=== PATIENT | male | born 1960 | race African-American/Black ===

== ENCOUNTER 2021-10-08 13:15 | Inpatient (IN) | payer MEDICAID ==
[~2021-10-08] VITALS: Ht 172.7 cm; Wt 90.7 kg
--- NOTE | 2021-10-08 13:45 | NUR ---
Patient accompanied by caregiver, complaints of right lower ext pain 6/10, headache started today. Denies nausea/vomiting. History of stroke 2 years ago. Vitals stable.
--- NOTE | 2021-10-08 13:55 | NUR ---
MD at bedside, medical screening in process.
[2021-10-08] MEDS ORDERED: TRAZ150T75 PO (14:03)
[2021-10-08] MEDS ORDERED: [UNRECOGNIZED DRUG - CODE] PO (14:03)
[2021-10-08] MEDS ORDERED: METF-440 PO (14:03)
[2021-10-08] MEDS ORDERED: EZET10TA15 PO (14:03)
[2021-10-08] MEDS ORDERED: ESCI-9 PO (14:03)
[2021-10-08] MEDS ORDERED: CHOL10005 PO (14:03)
[2021-10-08] MEDS ORDERED: TAMS-3 PO (14:03)
[2021-10-08] MEDS ORDERED: ESCI5TAB PO (14:03)
[2021-10-08] MEDS ORDERED: BICT1TAB PO (14:03)
[2021-10-08] MEDS ORDERED: ATOR80TA PO (14:03)
[2021-10-08] MEDS ORDERED: LISI10TA29 PO (14:03)
[2021-10-08 14:18] LABS: HEMATOCRIT 37.1 % (36.7-47.1); MEAN CORPUSCULAR HEMOGLOBIN 32.5 uug (23.8-33.4); MEAN CORPUSCULAR VOLUME 94.8 fL (73.0-96.2); PLATELET COUNT (AUTO) 270 K/uL (152-348)
[2021-10-08 14:24] LABS: CARBON DIOXIDE 27 mmol/L (21-32); CHLORIDE 104 mmol/L (98-107); CREATININE 1.4 mg/dL (0.6-1.3); GLUCOSE 104 mg/dL (74-106); POTASSIUM 4.1 mmol/L (3.5-5.1); UREA NITROGEN, BLOOD 15 mg/dL (7-18)
[2021-10-08 14:33] LABS: ALANINE AMINOTRANSFERASE 57 U/L (16-63); ALKALINE PHOSPHATASE 106 U/L (50-136); ASPARTATE AMINOTRANSFERASE 19 U/L (15-37); BILIRUBIN,DIRECT 0.1 mg/dL (0.0-0.2); BILIRUBIN,TOTAL 0.5 mg/dL (0.2-1.0)
--- NOTE | 2021-10-08 17:22 | NUR ---
Called [facility], patient will be in Room 319 Telemetry.
[2021-10-08] MEDS ORDERED: INSULIN REGULAR, HUMAN 300 UNIT/3 ML VIAL SQ PRN (17:30)
[2021-10-08] MEDS ORDERED: DEXTROSE 50% 50 ML DISP.SYRIN IV PRN (17:30)
[2021-10-08] MEDS ORDERED: ACETAMINOPHEN 325 MG TABLET PO PRN (17:30)
[2021-10-08] MEDS ORDERED: ONDANSETRON 4 MG/2 ML VIAL IV PRN (17:30)
--- NOTE | 2021-10-08 17:56 | NUR ---
Spoke with doc to give a report said "I will call you back".
[2021-10-08 20:00] VITALS: BP 135/80
--- NOTE | 2021-10-08 20:05 | NUR ---
REPORT GIVEN TO LIYAH YEE
--- NOTE | 2021-10-08 20:25 | NUR ---
TRANSFERRED PATIENT TO ROOM 319 TOGETHER WILL ALL BELONGINGS. LIYAH YEE IS AWARE OF PATIENT'S ARRIVAL
[2021-10-08] MEDS ORDERED: Medication Not On Formulary EA (Atorvastatin Calcium (Lipitor) 80 MG) PO SCH (21:00)
[2021-10-08] MEDS ORDERED: IV 1/2NS 1000 ML 1,000 ML IV ONE (21:00)
--- NOTE | 2021-10-08 21:00 | NUR ---
RECEIVED PATIENT VIA GURNEY FROM ER. PATIENT IS A/O X3. ABLE TO GIVE SOME HISTORY, BUT FORGETFUL AT TIMES. SPEECH IS CLEAR, BUT ALSO DELAYED AT TIMES. ABLE TO VERBALIZE NEEDS AND CONCERNS. A/O X3. DENIES ANY PAIN OR DISCOMFORT AT THIS TIME. PATIENT HAD A STROKE BEFORE AND HAS RIGHT SIDED WEAKNESS NOTED. BEDSIDE SWALLOW EVAL DONE AND PATIENT ABLE TO SWALLOW WATER WITHOUT ANY PROBLEM. VS WNL. H/L INTACT AND PATENT. PLACED ON TELE ORDERED SR. BED ALARM ON FOR SAFETY. CALL LIGHT IN REACH. ALL NEEDS ATTENDED. WILL CONTINUE TO MONITOR AND ASSESS.
[2021-10-08] MEDS: TAMSULOSIN HCL 0.4 MG CAP.SR.24H PO SCH (22:01)
[2021-10-08] MEDS: BLOOD SUGAR DIAGNOSTIC 1 EACH STRIP VI SCH (22:02)
[2021-10-08] MEDS: ATORVASTATIN 40 MG TABLET PO SCH (22:02)
[2021-10-09] VITALS: BP 102/66
[2021-10-09 04:34] VITALS: BP 112/71
--- NOTE | 2021-10-09 05:48 | NUR ---
PATIENT ASLEEP IN BED. SLEPT WELL. VSS. ON TELE SR. WILL CONTINUE TO MONITOR AND ASSESS.
[2021-10-09 07:04] LABS: HEMATOCRIT 36.2 % (36.7-47.1); MEAN CORPUSCULAR HEMOGLOBIN 32.8 uug (23.8-33.4); MEAN CORPUSCULAR VOLUME 95.1 fL (73.0-96.2); PLATELET COUNT (AUTO) 212 K/uL (152-348)
[2021-10-09] MEDS: BLOOD SUGAR DIAGNOSTIC 1 EACH STRIP VI SCH ×4 (07:04→20:38)
[2021-10-09 07:44] LABS: BILIRUBIN,TOTAL 0.7 mg/dL (0.2-1.0); CREATININE 1.3 mg/dL (0.6-1.3); PHOSPHOROUS 4.1 mg/dL (2.5-4.9); POTASSIUM 3.6 mmol/L (3.5-5.1); TOTAL PROTEIN, SERUM 7.5 g/dL (6.4-8.2)
[2021-10-09 07:46] LABS: THYROID STIMULATING HORMONE 0.853 mIU/mL (0.358-3.740)
[2021-10-09] MEDS ORDERED: METFORMIN HCL 500 MG TABLET PO SCH ×2 (09:00)
[2021-10-09] MEDS ORDERED: Medication Not On Formulary EA (Cholecalciferol (Vitamin D3) (Vitamin D3) 1 CAP) PO SCH (09:00)
[2021-10-09] MEDS ORDERED: BICTEGRAVIR PO SCH (09:00)
[2021-10-09] MEDS ORDERED: TENOFOVIR ALAFENAMIDE PO SCH (09:00)
[2021-10-09] MEDS ORDERED: ESCITALOPRAM OXALATE 2.5 MG PO SCH (09:00)
[2021-10-09] MEDS ORDERED: LISINOPRIL 10 MG TABLET PO SCH (09:00)
[2021-10-09] MEDS ORDERED: [UNRECOGNIZED DRUG - OTHER] PO SCH (09:00)
[2021-10-09] MEDS ORDERED: EMTRICITABINE PO SCH (09:00)
[2021-10-09] MEDS ORDERED: ESCITALOPRAM OXALATE 10 MG TABLET PO SCH (09:00)
[2021-10-09] MEDS: ASPIRIN EC 81 MG TABLET.DR PO SCH (09:54)
[2021-10-09] MEDS: CHOLECALCIFEROL 1,000 UNIT TABLET PO SCH (09:54)
[2021-10-09] MEDS: HEPARIN SODIUM,PORCINE 5,000 UNITS/ML VIAL SQ SCH ×2 (09:54→17:08)
[2021-10-09] MEDS: EZETIMIBE 10 MG TABLET PO SCH (09:55)
[2021-10-09 12:12] VITALS: BP 124/73
[2021-10-09] MEDS ORDERED: METF-494 PO (12:19)
--- NOTE | 2021-10-09 12:21 | NUR ---
pt is a/o x 3-4. Pt is able to ambulate to restroom with standby assist. Speech is clear and pt is able to communicate needs. [facility] nurse visitation today. Home medications cleared up with [facility] nurse and reported to pharmacy. Will continue to monitor pt.
[2021-10-09] MEDS: ESCITALOPRAM OXALATE 10 MG TABLET PO SCH (14:01)
[2021-10-09] MEDS: CLOPIDOGREL 75 MG TABLET PO SCH (15:27)
[2021-10-09 16:02] VITALS: BP 116/65
[2021-10-09] MEDS ORDERED: IV NORMAL SALINE 250 ML IV ONE (16:44)
[2021-10-09] MEDS ORDERED: IOHEXOL 350 100 ML INFUS..BTL ONE (16:44)
[2021-10-09] MEDS ORDERED: SWABABLE VALVE TRANSFER SET EA MC ONE (16:44)
--- NOTE | 2021-10-09 16:44 | NUR ---
CTA of carotids and brain ordered per neuro and primary due to concern of delayed/slurred speech. It was reported that speech is chronic due to history of CVA but caregiver reported that it is new onset. Metformin to be held [address] with contrast. Consent signed by pt.
[2021-10-09] MEDS ORDERED: METFORMIN XR 500 MG TAB.SR.24H PO SCH (17:00)
--- NOTE | 2021-10-09 17:26 | NUR ---
PT STARTED BURPING UNCONTROLLABLY CAN'T HOLD STILL,BROUGHT PT BACK TO HIS ROOM AND INFORMED HIS NURSE. SHE WILL CALL BACK WHEN HE CAN HOLS STILL.
--- NOTE | 2021-10-09 17:30 | NUR ---
pt was given metformin dose prior to CT due to needing to hold for two days post CT. Pt was unable to lay still during procedure due to constant gas build up and need of burping. Will attempt after pt has subsided symptoms.
--- NOTE | 2021-10-09 18:18 | NUR ---
pt is calm at this time, advised not to eat full meal to avoid nausea during dye injection. Pt feels he can lay straight. Pending imaging at this time.
--- NOTE | 2021-10-09 18:40 | NUR ---
Pt has gone for CT and returned. Imaging process was successful. Results should be in within the hour per tech report. Will endorse to yarn cleaner to follow up with results and notify MD of findings.
--- NOTE | 2021-10-09 19:20 | NUR ---
RECEIVED REPORT FROM OUTSIDE RADIOLOGIST IN REGARDS TO PATIENTS CTA RESULTS. WILL NOTIFY
--- NOTE | 2021-10-09 19:30 | NUR ---
CALLED OUT TO DR. GAUTHIER FOR CTA RESULTS. NO NEW ORDERS AT THIS TIME. ALL NEEDS ATTENDED. WILL CONTINUE TO MONITOR AND ASSESS.
--- NOTE | 2021-10-09 20:00 | NUR ---
PATIENT AWAKE IN BED. A/O X3-4. DENIES ANY PAIN OR DISCOMFORT. NO RESP. DISTRESS NOTED. VS WNL. ON TELE SR. H/L INTACT AND PATENT, NOTED TO RIGHT WRIST #20 GAUGE. CALL LIGHT IN REACH. ALL NEEDS ATTENDED. WILL CONTINUE TO MONITOR AND ASSESS.
[2021-10-09 20:03] VITALS: BP 108/65
[2021-10-09] MEDS: TAMSULOSIN HCL 0.4 MG CAP.SR.24H PO SCH (20:29)
[2021-10-09] MEDS: ATORVASTATIN 40 MG TABLET PO SCH (20:30)
[2021-10-10 00:12] VITALS: BP 101/56
[2021-10-10 04:20] VITALS: BP 104/62
[2021-10-10] MEDS: BLOOD SUGAR DIAGNOSTIC 1 EACH STRIP VI SCH ×4 (06:26→20:21)
--- NOTE | 2021-10-10 07:16 | NUR ---
PATIENT AWAKE IN BED. SLEPT WELL THROUGHOUT THE NIGHT. ON TELE SR. VS WNL. DENIES ANY PAIN OR DISCOMFORT. ALL NEEDS ATTENDED. WILL CONTINUE TO MONITOR AND ASSESS.
[2021-10-10] MEDS: CLOPIDOGREL 75 MG TABLET PO SCH (08:14)
[2021-10-10] MEDS: ASPIRIN EC 81 MG TABLET.DR PO SCH (08:14)
[2021-10-10] MEDS: ESCITALOPRAM OXALATE 10 MG TABLET PO SCH (08:15)
[2021-10-10] MEDS: CHOLECALCIFEROL 1,000 UNIT TABLET PO SCH (08:15)
[2021-10-10] MEDS: EZETIMIBE 10 MG TABLET PO SCH (08:15)
[2021-10-10] MEDS: HEPARIN SODIUM,PORCINE 5,000 UNITS/ML VIAL SQ SCH ×2 (08:22→16:40)
[2021-10-10 08:54] VITALS: BP 106/72
--- NOTE | 2021-10-10 11:15 | NUR ---
Pt is alert oriented x 3-4 with slight delay in words. Speech is clear, no complaint of headache, nausea or indigestion. Pt does not have altered mental status. Comfort measures provided, call light within reach, will continue to monitor.
[2021-10-10 11:48] VITALS: BP 98/61
[2021-10-10 15:43] VITALS: BP 114/74
--- NOTE | 2021-10-10 19:12 | NUR ---
Received patient in bed AALOx 4.Denies pain at this time. On RA.No resp. distress noted.NSR on Tele .Iv patent and intact on right wrist. notified of MRA stat will not be done today.Will rescheduled tomorrow.Charge nurse /Anne made aware .Will continue to monitor. Call light with in reach.
[2021-10-10 20:10] VITALS: BP 107/64
[2021-10-10] MEDS: TAMSULOSIN HCL 0.4 MG CAP.SR.24H PO SCH (20:20)
[2021-10-10] MEDS: ATORVASTATIN 40 MG TABLET PO SCH (20:20)
[2021-10-11 04:32] VITALS: BP 121/72
--- NOTE | 2021-10-11 06:41 | NUR ---
Patient verbally responsive. Slept well. No acute distress noted.NSR on tele.MRA consent sign .all needs anticipated and met accordingly. VSS.Will endorse to oncoming shift.
[2021-10-11] MEDS: BLOOD SUGAR DIAGNOSTIC 1 EACH STRIP VI SCH ×4 (06:45→20:26)
[2021-10-11] MEDS: EZETIMIBE 10 MG TABLET PO SCH (08:29)
[2021-10-11] MEDS: CLOPIDOGREL 75 MG TABLET PO SCH (08:30)
[2021-10-11] MEDS: ASPIRIN EC 81 MG TABLET.DR PO SCH (08:30)
[2021-10-11] MEDS: ESCITALOPRAM OXALATE 10 MG TABLET PO SCH (08:30)
[2021-10-11] MEDS: CHOLECALCIFEROL 1,000 UNIT TABLET PO SCH (08:30)
[2021-10-11] MEDS: HEPARIN SODIUM,PORCINE 5,000 UNITS/ML VIAL SQ SCH ×2 (08:31→17:30)
--- NOTE | 2021-10-11 10:34 | NUR ---
Pt is going for MRI of head and neck. Transportation steel pickler now via [facility] to [facility]. Consent and forms signed and provided to transport team.
[2021-10-11] MEDS ORDERED: GADOTERATE MEGLUMINE 10 MMOL/20 ML VIAL IV ONE (12:43)
--- NOTE | 2021-10-11 13:00 | NUR ---
Pt has returned from [place] ([facility]). Vitals: 122/90 HR 74, 98% SpO2. No adverse events during time away reported. No complaints of dizziness or pain. Will continue to monitor.
[2021-10-11] MEDS ORDERED: METFORMIN XR 500 MG TAB.SR.24H PO SCH (18:00)
--- NOTE | 2021-10-11 19:36 | NUR ---
Notified primary MD of MRI results. Forwarded to Neurologist. Pt is resting in bed, no signs of acute distress, comfort measures provided, call light within reach. Presenting with sinus rhythm on telemetry. Endorsed pt to supervisor prep RN.
--- NOTE | 2021-10-11 20:12 | NUR ---
Patient in bed awake and able to make needs known.Denies SOB.No c/o pain. MRa result relayed to Dr.Okhovat lopez at this time. BS checked 117.Compliant with medications.Call light with in reach.Will continue to monitor.
[2021-10-11] MEDS: TAMSULOSIN HCL 0.4 MG CAP.SR.24H PO SCH (20:24)
[2021-10-11] MEDS: ATORVASTATIN 40 MG TABLET PO SCH (20:24)
[2021-10-11 20:45] VITALS: BP 122/71
[2021-10-12 04:35] VITALS: BP 113/71
[2021-10-12] MEDS: BLOOD SUGAR DIAGNOSTIC 1 EACH STRIP VI SCH ×4 (06:35→20:48)
[2021-10-12] MEDS ORDERED: TRAZ150T75 PO (07:22)
[2021-10-12] MEDS ORDERED: CLOP75TA33 PO (07:22)
[2021-10-12] MEDS ORDERED: ASPI-618 PO (07:22)
--- NOTE | 2021-10-12 07:30 | NUR ---
RECEIVED IN BED AWAKE ALERT AND AWARE WITH EXPRESSIVE APHASIA NO S/S OF PAIN OR DISCOMFORTS AT THIS TIME TELE IS SR REMAIN ON ROOM AIR WITH NO SHORTNESS OF BREATH CALL LIGHTS AND PERSONAL BELONGINGSW ARE WITHIN EASY REACH MADE COMFORTABLE WILL CONTINUE TO OBSERVE.
[2021-10-12] MEDS: HEPARIN SODIUM,PORCINE 5,000 UNITS/ML VIAL SQ SCH ×2 (08:42→16:27)
[2021-10-12] MEDS: CLOPIDOGREL 75 MG TABLET PO SCH (08:48)
[2021-10-12] MEDS: CHOLECALCIFEROL 1,000 UNIT TABLET PO SCH (08:48)
[2021-10-12] MEDS: EZETIMIBE 10 MG TABLET PO SCH (08:48)
[2021-10-12] MEDS: ASPIRIN EC 81 MG TABLET.DR PO SCH (08:49)
[2021-10-12] MEDS: ESCITALOPRAM OXALATE 10 MG TABLET PO SCH (08:49)
--- NOTE | 2021-10-12 11:30 | NUR ---
SPOKE WITH GOLF COURSE KEEPER RE DISCHARGE ORDER TO A SNF AND HE STATED THAT HE IS STILL WORKING ON FINDING A PLACEMENT FOR THE PATIENT.
[2021-10-12 12:00] VITALS: BP 118/65
[2021-10-12 16:45] VITALS: BP 122/78
--- NOTE | 2021-10-12 17:57 | NUR ---
PER TRANSPORT PILOT STILL LOOKING FOR PLACEMENT FOR THIS PATIENT MOST LIKELY TOMORROW PATIENT AWARE LATEST BLOOD SUGAR IS 117
[2021-10-12 20:20] VITALS: BP 125/77
[2021-10-12] MEDS: TAMSULOSIN HCL 0.4 MG CAP.SR.24H PO SCH (20:46)
[2021-10-12] MEDS: ATORVASTATIN 40 MG TABLET PO SCH (20:46)
[2021-10-13 04:22] VITALS: BP 115/81
[2021-10-13] MEDS: BLOOD SUGAR DIAGNOSTIC 1 EACH STRIP VI SCH ×4 (05:52→20:58)
--- NOTE | 2021-10-13 07:30 | NUR ---
resting in bed, denies of any discomfort, right sided weakness noted, explained plan of care- verbalized understanding, safety measures in place, needs attended, call light within reach
[2021-10-13] MEDS: CLOPIDOGREL 75 MG TABLET PO SCH (09:19)
[2021-10-13] MEDS: EZETIMIBE 10 MG TABLET PO SCH (09:19)
[2021-10-13] MEDS: CHOLECALCIFEROL 1,000 UNIT TABLET PO SCH (09:19)
[2021-10-13] MEDS: ESCITALOPRAM OXALATE 10 MG TABLET PO SCH (09:19)
[2021-10-13] MEDS: ASPIRIN EC 81 MG TABLET.DR PO SCH (09:19)
[2021-10-13] MEDS: HEPARIN SODIUM,PORCINE 5,000 UNITS/ML VIAL SQ SCH ×2 (09:20→17:23)
[2021-10-13 12:00] VITALS: BP 111/78
[2021-10-13 16:06] VITALS: BP 121/78
--- NOTE | 2021-10-13 18:08 | NUR ---
no distress noted, still awaiting for placement, all needs attended and met call light within reach
[2021-10-13 20:00] VITALS: BP 128/75
--- NOTE | 2021-10-13 20:30 | NUR ---
Patient alert oriented, no sob no chest pain, no complain, patient ambulate with steady gait, cont to monitor.
[2021-10-13] MEDS: TAMSULOSIN HCL 0.4 MG CAP.SR.24H PO SCH (20:51)
[2021-10-13] MEDS: ATORVASTATIN 40 MG TABLET PO SCH (20:51)
[2021-10-14 04:00] VITALS: BP 112/65
--- NOTE | 2021-10-14 05:22 | NUR ---
PATIENT ALERT ORIENTED, NO SOB NO CHEST PAIN, BP STABLE, NO COMPLAIN OF PAIN, CONT TO MONITOR.
[2021-10-14] MEDS: BLOOD SUGAR DIAGNOSTIC 1 EACH STRIP VI SCH ×2 (06:15→11:12)
[2021-10-14] MEDS: CHOLECALCIFEROL 1,000 UNIT TABLET PO SCH (08:13)
[2021-10-14] MEDS: ASPIRIN EC 81 MG TABLET.DR PO SCH (08:13)
[2021-10-14] MEDS: CLOPIDOGREL 75 MG TABLET PO SCH (08:13)
[2021-10-14] MEDS: EZETIMIBE 10 MG TABLET PO SCH (08:13)
[2021-10-14] MEDS: ESCITALOPRAM OXALATE 10 MG TABLET PO SCH (08:13)
[2021-10-14] MEDS: HEPARIN SODIUM,PORCINE 5,000 UNITS/ML VIAL SQ SCH (08:53)
[2021-10-14 11:37] VITALS: BP 117/80
--- NOTE | 2021-10-14 12:08 | NUR ---
patient discharged home, picked up by sister, educations given to patient about medications, patient verbalized understanding of it, IV removed, ID removed, patient is ambulatory, alert, oriented x4, no acute distress noted, belongings signed and sent with patient. prescription given to patient.
== END 2021-10-14 12:10 | disposition home health service (06) | DRG 58 ==
LOC: ER 13:15 → TELE3 20:11 → MEDSURG3 21:40 → TELE3 23:36 → MEDSURG3 10-12 10:33
PROVIDERS: ADMIT Internal Medicine; ATTEND Internal Medicine
DX: I69.351 Hemiplegia and hemiparesis following cerebral infarction affecting right dominant side (principal); N17.0 Acute kidney failure with tubular necrosis; E78.5 Hyperlipidemia, unspecified; E11.9 Type 2 diabetes mellitus without complications; Z79.84 Long term (current) use of oral hypoglycemic drugs; I50.32 Chronic diastolic (congestive) heart failure; I11.0 Hypertensive heart disease with heart failure; Z20.822 Contact with and (suspected) exposure to COVID-19; G93.89 Other specified disorders of brain; I65.22 Occlusion and stenosis of left carotid artery; R47.01 Aphasia; R13.10 Dysphagia, unspecified
CPT/HCPCS: 36415; 70030-TC; 70450; 70496; 71045; 84100; 84443; 84484; 85025; 85730; 93005; 93307; 93880; 97161; A4663; A9575; G0378; J1644; J1815; J2405; Q9967